=== PATIENT | male | born 1950 | race Caucasian/White ===

== ENCOUNTER → 2023-09-28 17:43 | Outpatient (REF) | payer OTHER, SELFPAY | LOC: OLAB 17:43 | PROVIDERS: ATTENDING PHYSICIAN Specialist | DX: C67.9 Malignant neoplasm of bladder, unspecified (principal) | CPT/HCPCS: 88305; 88341; 88342 ==

== ENCOUNTER 2023-10-25 11:00 | Emergency (ER) | payer MEDICARE, OTHER, SELFPAY ==
[2023-10-25 11:03] VITALS: BP 109/46
--- NOTE | 2023-10-25 11:50 | ED.GENMED ---
Addendum entered and electronically signed by Max Garvin Jr., PA-C 10/28/23 18:17:
The patient called the ER. He was called back and he claimed that he had ongoing arthritic pain was concerned potential Lyme being the culprit rather than the UTI. His UTI symptoms have been improving. The initial Lyme test was presumptive
positive [place] patient was sent for Doxy and advised for close primary care follow-up. Return precautions given.
Original Note:
History of Present Illness
General
Chief Complaint: Weakness
Source: patient
Exam Limitations: none
Time Seen by Provider: 10/25/23 11:33
Nursing documentation reviewed up to this point in time: agreed with
History of Present Illness
History of Present Illness:
71-year-old male with past medical history of bladder cancer with recent cystoscopy and mitomycin treatment 1 week ago since then he has had some bodyaches joint aches generalized weakness fatigue. Denies any specific additional symptoms. No
nausea vomiting chest pain shortness of breath. Did initially have some urinary frequency.
Review of Systems
Review of Systems
Allergies reviewed?: Yes
All Other Systems: ROS reviewed and negative except as documented in HPI and ROS
Phy Exam
Physical Exam
Physical Exam:
GENERAL: Alert , in no apparent distress
EYE: pupils equal and reactive
NECK: Supple, no significant adenopathy.
ENT: o/p clr, mmm.
CARDIAC: Regular rate and rhythm .
LUNGS: Clear breath sounds bilaterally, no acute respiratory distress, no wheezes/rales/rhonchi
ABDOMEN: Soft, without focal tenderness, no r/g, no cvat
NEUROLOGICAL: Alert and oriented, no focal neuro deficits
SKIN: Warm and dry, skin intact.
MUSCULOSKELETAL: No edema, well perfused.
PSYCH: Normal and appropriate interaction.
Course
Orders/Labs/Results
Orders:
Orders
10/25/23 11:34
Electrocardiogram (*1) Stat
Reason for Study: Abdominal Pain
EKG- Treatment ONCE
10/25/23 12:16
Complete Blood Count/With Diff Urgent
Comprehensive Metabolic Panel Urgent
Lyme Progressive Urgent
Comment: LYME PROGRESSIVE ADDED ON BY FLOOR 2:40PM 10-25-23
Monotest Urgent
Comment: MONOSCREEN ADDED ON BY FLOOR 2:10PM 10-25-23
TSH Reflex To Free T4 Urgent
10/25/23 12:25
Urinalysis Reflex To Culture Urgent
Date Specimen was Collected: 10/25/23
Time Specimen was Collected: 12:17
Urine Microscopic Reflex Cult Urgent
Urine Culture Urgent
VADIM Source: U
Specimen Description:
Date Specimen was Collected: 10/25/23
Time Specimen was Collected: 12:17
10/25/23 12:27
Acetaminophen [Tylenol] 1,000 mg PO NOW STA
10/25/23 12:30
COVID-19 Antigen Urgent
Source: Nasal Swab
10/25/23 13:58
CefTRIAXone [Rocephin] 1,000 mg IV NOW STA
10/25/23 14:09
Add On- LAB Urgent
Tests Added?: monoscreen
10/25/23 14:39
Add On- LAB Urgent
Tests Added?: lyme progressive
Abnormal Lab Results
10/25/23 10/25/23
12:16 12:25
WBC 3.4 L 10^3/uL
(4.8-10.8)
RBC 3.45 L 10^6/uL
(4.70-6.10)
Hgb 10.7 L g/dL
(13.0-18.0)
Hct 31.6 L %
(39.0-52.0)
RDW 15.2 H %
(11.5-14.5)
Plt Count 80 L 10^3/uL
(130-400)
MPV 12.2 H fL
(7.4-10.4)
Absolute Lymphs (auto) 1.0 L 10^3/uL
(1.2-3.4)
Immature Gran % 0.6 H %
(0-0.5)
Monocytes % 14.8 H %
(1.7-9.3)
BUN 28 H mg/dl
(9-20)
Glucose 147 H mg/dl
(70-99)
Total Bilirubin 3.0 H mg/dl
(0.2-1.3)
AST 119 H U/L
(17-59)
ALT 134 H U/L
(0-50)
Urine Ketones 1+ A
(Negative)
Ur Occult Blood Reflex 1+ A
(Negative)
Urine Nitrite (Reflex) Positive A
(Negative)
Urine Bilirubin 1+ A
(Negative)
Urine Urobilinogen 3+ A
(Neg - 1+)
Leukocyte Esterase Rfl 1+ A
(Negative)
Urine RBC 7-10 A /HPF
(0-2)
Urine WBC (Reflex) 16-20 A /HPF
(0-5)
Urine Bacteria (Reflex) Moderate A
(Negative)
Urine Albumin (Reflex) 1+ A
(Neg - Trace)
10/25/23 12:16
10/25/23 12:16
Vital Signs
Initial and Last Documented VS:
Initial Vital Signs
Temp Pulse Resp BP Pulse Ox
97.7 F 79 16 109/46 96
10/25/23 11:03 10/25/23 11:03 10/25/23 11:03 10/25/23 11:03 10/25/23 11:03
Last Documented Vital Signs
Temp Pulse Resp BP Pulse Ox
100.1 F 66 14 97/54 96
10/25/23 12:05 10/25/23 14:20 10/25/23 14:20 10/25/23 14:18 10/25/23 14:20
MDM/Problems Addressed
MDM/Problems Addressed:
73-year-old male presenting to the emergency department today with concerns of generalized weakness fatigue body aches over the past week or so. Did recently have treatment for bladder cancer and had 2 polyps removed and mitomycin intravesicular
treatment. He claims that the first few days he noticed some intermittent fevers and bodyaches symptoms have been ongoing. Denies specific symptoms otherwise. Upon arrival vital signs are normal. Patient no distress patient does have a low-grade
temperature here of 100.1 otherwise no white count patient is anemic but no recent numbers for comparison. Also plate levels are somewhat low
Patient was notified of the lab abnormalities will follow-up close with his primary care doctor. Additionally the possibility of tickborne illness was considered Lyme test was sent. Monoscreen negative COVID-negative. Case was discussed with
urology patient was started on Bactrim and will follow-up closely as an outpatient.
*Critical Care Note
Total Time (30-74mins, 75-104mins- exclusive of procedures): Not Applicable
ED Attending Note
-
Portions of this chart may have been created with voice recognition software.� Occasional wrong word or��sound alike� substitutions may have occurred due to the inherent limitations of voice recognition software.
Discharge Plan
Departure
Patient Disposition: Home (Routine Discharge)
Date of Disposition: 10/25/23
Time of Disposition: 15:19
Patient with high blood pressure during this ER visit?: No
Condition: Good
Covid-19: Not Applicable
Discharge Problem:
Acute UTI, Transaminitis, Anemia with low platelet count
Instructions: Generalized Weakness (DC), Urinary Tract Infection, Adult ED
Prescriptions:
New
sulfamethoxazole-trimethoprim [Bactrim DS] 800-160 mg tablet
1 tab PO BID 7 Days Qty: 14 0RF
Referrals:
Benny Falk MD [Active] - Follow up in 5-7 days
Benny Clark MD [Family Provider] -
Activity Restrictions/Additional Instructions:
You came to the emergency department today with concerns of lethargy and bodyaches. Here you had urinalysis that showed potential UTI you were started on Bactrim. You will need to cancel your upcoming treatment but can follow-up next week.
Additionally you had some lab abnormalities and eluding a low platelet count and elevated liver function tests. It is important to follow-up closely for this. There is also a consideration of tickborne illness Lyme disease test was sent but is
still pending. You will be contacted if this is positive. Return to the emergency department for any worsening, new or concerning symptoms.
Interventions
Interventions:
*Risk Screen - Suicide Last Done: 10/25/23 11:03
*General Assessment Last Done: 10/25/23 11:03
*Neglect/Abuse Screening Last Done: 10/25/23 11:03
*ED COVID-19 Vaccine History Last Done: 10/25/23 12:06
ED- Cardiac Assessment Last Done: 10/25/23 12:07
ED- Neurological Assessment Last Done: 10/25/23 12:07
ED- Pulmonary Assessment Last Done: 10/25/23 12:07
Discharge Date and Time
Print Language: KOSOVAN
[2023-10-25 12:00] VITALS: BMI 37.9
[2023-10-25 12:05] VITALS: BP 105/52
[2023-10-25 12:27] LABS: % Basophils 0.3 % (0-2); % Eosinophils 1.2 % (0-6); % Immature Granulocytes 0.6 % (0-0.5); % Lymphocytes 29.9 % (20.5-51.1); % Monocytes 14.8 % (1.7-9.3); % Neutrophils 53.2 % (42.2-75.2); Absolute Monocytes 0.5 10^3/uL (0.1-0.6); Absolute Neutrophils 1.8 10^3/uL (1.4-6.5); Hematocrit 31.6 % (39.0-52.0); Hemoglobin 10.7 g/dL (13.0-18.0); Mean Corp Hgb Conc. 33.9 g/dL (33.0-37.0); Mean Corpuscular Volume 91.6 fL (80.0-94.0); Nucleated Red Blood Cells % 0 % (-); Red Blood Cell Count 3.45 10^6/uL (4.70-6.10); Red Cell Dist. Width 15.2 % (11.5-14.5); White Blood Cell Count 3.4 10^3/uL (4.8-10.8)
[2023-10-25] MEDS: TYLENOL 1000 MG PO (12:31)
[2023-10-25 12:37] LABS: ALT (SGPT) 134 U/L (0-50); AST (SGOT) 119 U/L (17-59); Albumin 4.2 g/dl (3.5-5.0); Alkaline Phosphatase 86 U/L (38-126); Blood Urea Nitrogen 28 mg/dl (9-20); Calcium 8.8 mg/dl (8.4-10.2); Carbon Dioxide 27 mmol/L (22-30); Chloride 102 mmol/L (98-107); Estimated Creatinine Clearance 79 ml/min; Glucose 147 mg/dl (70-99); Potassium 4.4 mmol/L (3.5-5.1); Sodium 137 mmol/L (135-145); Total Protein 7.4 g/dl (6.3-8.2); eGFR > 60.00
[2023-10-25 13:00] VITALS: BP 113/54
[2023-10-25 13:10] LABS: COVID-19 Antigen Negative (Negative)
[2023-10-25 13:14] LABS: TSH Reflex To Free T4 1.09 uIU/ml (0.47-4.68)
[2023-10-25 13:27] LABS: Urine Albumin 1+ (Neg - Trace); Urine Bilirubin 1+ (Negative); Urine Character Clear (Clear); Urine Color Amber; Urine Glucose Negative (Negative); Urine Ketone 1+ (Negative); Urine Leukocyte 1+ (Negative); Urine Nitrite Positive (Negative); Urine Occult Blood 1+ (Negative); Urine Urobilinogen 3+ (Neg - 1+)
[2023-10-25 13:51] LABS: Urine Bacteria Moderate (Negative); Urine White Cell 16-20 /HPF (0-5)
--- NOTE | 2023-10-25 14:02 | EDRN ---
Sarina MEJIA said pt can eat boxed lunch, is calling urology prior to disposition, and ordering an antibiotic for UTI.
[2023-10-25 14:14] LABS: Mean Platelet Volume 12.2 fL (7.4-10.4); Platelet Count 80 10^3/uL (130-400)
[2023-10-25] MEDS: ROCEPHIN 1000 MG IV (14:16)
[2023-10-25 14:18] VITALS: BP 97/54
[2023-10-25 14:37] LABS: Monotest Negative (Negative)
[2023-10-25 15:00] VITALS: BP 107/57
[2023-10-27 15:58] LABS: Lyme Antibody Screen, EIA Presump. Positive (Negative)
[2023-10-30 17:54] LABS: Lyme Ab Western Blot IgG Positive (Negative); Lyme Ab Western Blot IgM Negative (Negative)
== END 2023-10-25 15:48 | disposition home or self-care (01) ==
LOC: EMR 11:00
PROVIDERS: Physician Assistant; EMERGENCY PHYSICIAN Emergency Medicine; FAMILY PHYSICIAN Internal Medicine
DX: N39.0 Urinary tract infection, site not specified (principal); D64.9 Anemia, unspecified; C67.9 Malignant neoplasm of bladder, unspecified; R53.1 Weakness; Z11.52 Encounter for screening for COVID-19
CPT/HCPCS: 99284; 96374; 80053; 81003; 81015; 84443; 85025; 86308; 86617; 86618; 87086; 87811; 93005

== ENCOUNTER → 2024-10-22 17:28 | Outpatient (REF) | payer MEDICARE, OTHER, SELFPAY | LOC: CLAB 17:28 | PROVIDERS: ATTENDING PHYSICIAN Specialist | DX: C67.9 Malignant neoplasm of bladder, unspecified (principal) | CPT/HCPCS: 88305 ==